=== PATIENT | female | born 1975 | race Caucasian/White ===

== ENCOUNTER 2020-11-19 16:03 | Emergency (ER) | payer BC ==
[~2020-11-19] VITALS: Ht 170.2 cm; Wt 74.8 kg
[2020-11-19] MEDS ORDERED: APAP W/CODEINE1 TA2 PO (18:56)
[2020-11-19 19:08] VITALS: BP 133/84
== END 2020-11-19 19:08 | disposition home or self-care (01) ==
LOC: M.ERS 16:03
DX: M25.562 Pain in left knee (principal); R22.42 Localized swelling, mass and lump, left lower limb